=== PATIENT | male | born 1935 | race Caucasian/White ===

== ENCOUNTER 2023-04-28 10:01 | Inpatient (IN) | payer MEDICARE, MEDICAID, SELFPAY ==
[2023-04-28] VITALS (7 sets, daily range): BP systolic 110–122; BP diastolic 62–75; PULSE 70–87; RESP 0–22; TEMP 36.6–37.4; O2SAT 91–94; BMI 25.7
--- NOTE | 2023-04-28 10:24 | XRR_ITS ---
PROCEDURE INFORMATION: Exam: XR Chest Exam date and time: 04/28/2023 10:42 AM Age: 87 years old Clinical indication: Cough and dyspnea; Prior surgery; Surgery date: 6+ months; Surgery type: Pacer; Additional info: Dyspnea/cough TECHNIQUE: Imaging protocol: Radiologic exam of the chest. Views: 1 view. COMPARISON: CR XR chest 1V portable [id number] 01/27/2023 8:22 PM FINDINGS: Tubes, catheters and devices: Left sided cardiac pacemaker lead is in satisfactory position. Lungs: Low lung volumes with no focal opacities. Pleural spaces: No sizable pleural effusion or pneumothorax. Heart/Mediastinum: Stable cardiomediastinal silhouette. Bones/joints: Unremarkable. XR/XR chest 1V portable [id number] IMPRESSION: No acute intrathoracic findings.
[2023-04-28 10:39] LABS: Basophils # 0.1 10^3/uL (0.0-0.1); Basophils % 0.3 %; Hematocrit 43.2 % (37-53); Lymphocytes # 0.8 10^3/uL (0.8-4.8); Mean Corpuscular HGB Conc 32.6 g/dL (30-55); Mean Corpuscular Hemoglobin 30.3 pg (27-33); Mean Corpuscular Volume 92.7 fl (82-101); Mean Platelet Volume 10.5 fL (7.4-10.4); Monocytes # 0.9 10^3/uL (0.2-0.9); Monocytes % 6.1 %; Neutrophils # 13.48 10^3/uL (1.8-7.7); Neutrophils % 87.9 %; Nucleated Red Blood Cells % 0 %; Platelet Count 212 10^3/cmm (157-399); Red Blood Count 4.66 10^6/uL (3.85-5.65); Red Cell Distribution Width 13.9 % (12.1-15.1); White Blood Count 15.33 10^3/uL (3.29-11.43)
--- NOTE | 2023-04-28 10:41 | ED_ITS ---
HPI - Weakness 2 General: Chief complaint: Weakness Stated complaint: Septic Time Seen by Provider: 04/28/23 10:04 Source: patient Mode of arrival: ambulatory History of Present Illness: 87-year-old male presents to the emergen cy room with complaints of generalized weakness and just not feeling well he has had UTIs in the past. He has not had any fever sweats or chills this morning he has been more confused according to his is his main caregiver. Has not had any vomiting or diarrhea. Report from other failures that the patient has had increased frequency of urination. MD Complaint: generalized weakness Onset (ago): hour(s) Duration: constant Location: generalized Associated symptoms: Denies chest pain, chills, confusion, melena, decreased appetite, diaphoresis, dysuria, easy bruising, fever(s), headache(s), myalgias, nausea, rash, short of breath, syncope or vomiting Review of Systems 2 Const: Denies: fever(s), chills or diaphoresis Card: Denies: chest pain or syncope Resp: Denies: dyspnea GI: Denies: abdominal pain, nausea, vomiting or melena : Reports: urinary frequency; Denies: dysuria or urinary urgency Musc: Denies: neck pain or back pain Skin/Breast: Denies: rash Neuro: Denies: headache(s) or confusion Dawson/Lymph: Denies: easy bruising PFSH ED 2 PFSH: Medical History (Updated 04/28/23 @ 15:42 by Ferny Casper DO) Chronic kidney disease Hypothyroidism Depression Hyperlipidemia Urinary retention Alzheimer disease CAD (coronary artery disease) Atrial fibrillation CHF (congestive heart failure) CVA (cerebral vascular accident) BPH with obstruction/lower urinary tract symptoms Gross hematuria Surgical History (Updated 04/28/23 @ 12:29 by Ryenaldo Syed MD) History of permanent cardiac pacemaker placement History of back surgery S/P knee surgery Family History Father , 81 CAD (coronary artery disease) Mother Diabetes Social History Smoking and tobacco/nicotine status: former use of tobacco/nicotine Alcohol intake: never Substance/Drug Use: never Adopted: No Caregiver/support person: No Lives independently: No Household members: spouse Marital status: Current occupational status: retired Physical Exam 2 Const: GENERAL APPEARANCE: cooperative and comfortable O RIENTATION/CONSCIOUSNESS: Yes awake HENMT: COMMON NORMALS: normocephalic, atraumatic and hearing grossly normal bilaterally HEAD & SCALP: normocephalic and atraumatic Resp: COMMON NORMALS: normal respiratory effort, No retractions, No use of accessory muscles and clear to auscultation bilaterally AUSCULTATION: clear to auscultation bilaterally Cardio: COMMON NORMALS: regular rate, regular rhythm and No murmurs present (Cardio) RATE: regular rate RHYTHM: regular rhythm GI: COMMON NORMALS: Soft to palpation and No hepatosplenomegaly present A USCULTATION: Yes normoactive bowel sounds PALPATION: Yes Soft to palpation, No Tenderness to palpation present (GI), No Guarding due to palpation present (GI) and Yes No hepatosplenomegaly present Extremity: COMMON NORMALS: normal to inspection, capillary refill normal, no clubbing, cyanosis or edema, no calf tenderness and no pedal edema Skin: COMMON NORMALS: no rashes or lesions noted GENERAL SKIN EXAM: no rashes or lesions noted Course 2 Vital Signs: Vital signs: Vital Signs Temperature 98.1 F 04/28/23 13:17 Pulse Rate 72 04/28/23 13:25 Respiratory Rate 16 04/28/23 13:25 Blood Pressure 122/62 04/28/23 13:17 Pulse Oximetry 93 04/28/23 13:25 Oxygen Delivery Me thod Room Air 04/28/23 13:28 MDM - Weakness Medical Decision Making Cystitis with early signs of sepsis. Patient had cultures done started on antibiotics fluid bolus given does not require pressure support at this time. Discussed with family. UA shows largely white blood cells. He does have a history of known renal stones in the kidneys but has not passed any renal stones. He is not having significant pain at this time. Minimal white blood cells on the UA. Discussed Dr. Syed will admit orders written Medical Records I reviewed the patient's medical records. Lab Data I reviewed the patient's lab results. 04/28/23 10:13 04/28/23 10:13 Radiology Impressions Chest X-Ray 04/28/23 10:24 IMPRESSION: No acute intrathoracic findings. Laboratory Results WBC 15.33 10^3/uL (3.29-11.43) H 04/28/23 10:13 RBC 4.66 10^6/uL (3.85-5.65) 04/28/23 10:13 Hgb 14.10 g/dL (11.27-16.99) 04/28/23 10:13 Hct 43.2 % (37-53) 04/28/23 10:13 MCV 92.7 fl (82-101) 04/28/23 10:13 MCH 30.3 pg (27-33) 04/28/23 10:13 MCHC 32.6 g/dL (30-55) 04/28/23 10:13 RDW 13.9 % (12.1-15.1) 04/28/23 10:13 Plt Count 212 10^3/cmm (157-399) 04/28/23 10:13 MPV 10.5 fL (7.4-10.4) H 04/28/23 10:13 Neut % (Auto) 87.9 % 04/28/23 10:13 Lymph % (Auto) 5.0 % 04/28/23 10:13 [place] % (Auto) 6.1 % 04/28/23 10:13 Eos % (Auto) 0.0 % 04/28/23 10:13 Baso % (Auto) 0.3 % 04/28/23 10:13 Neut # (Auto) 13.48 10^3/uL (1.8-7.7) H 04/28/23 10:13 Lymph # (Auto) 0.8 10^3/uL (0.8-4.8) 04/28/23 10:13 [place] # (Auto) 0.9 10^3/uL (0.2-0.9) 04/28/23 10:13 Eos # (Auto) 0.0 10^3/uL (0.0-0.8) 04/28/23 10:13 Baso # (Auto) 0.1 10^3/uL (0.0-0.1) 04/28/23 10:13 Nucleated RBC % (auto) 0 % 04/28/23 10:13 Nucleated RBCs # 0.0 /100WBC 04/28/23 10:13 Sodium 137 mmol/L (136-145) 04/28/23 10:13 Potassium 4.3 mmol/L (3.5-5.1) 04/28/23 10:13 Chloride 103 mmol/L (98-107) 04/28/23 10:13 Carbon Dioxide 20 mmol/L (22-29) L 04/28/23 10:13 Anion Gap 18.3 (5-19) 04/28/23 10:13 BUN 17 mg/dL (8-23) 04/28/23 10:13 Creatinine 1.8 mg/dL (0.7-1.2) H 04/28/23 10:13 GFR Calculation Not Reportable 04/28/23 10:13 Glucose 119 mg/dL (65-115) H 04/28/23 10:13 Calculated Osmolality 287 mOsm/kg (285-295) 04/28/23 10:13 Lactic Acid 2.7 mmol/L (0.5-2.2) H 04/28/23 10:13 Calcium 8.7 mg/dL (8.5-10.5) 04/28/23 10:13 Total Bilirubin 2.0 mg/dL (0.15-1.2) H 04/28/23 10:13 AST 11 U/L (0-40) 04/28/23 10:13 ALT 7 U/L (0-41) 04/28/23 10:13 Alkaline Phosphatase 96 U/L (40-130) 04/28/23 10:13 Total Protein 7.3 g/dL (6.6-8.7) 04/28/23 10:13 Albumin 3.5 g/dL (3.5-5.2) 04/28/23 10:13 Globulin 3.8 g/dL (1.3-4.6) 04/28/23 10:13 Urine Color Yellow (Yellow) 04/28/23 11:06 Urine Appearance Cloudy (CLEAR) A 04/28/23 11:06 Urine pH 5 (5-7) 04/28/23 11:06 Ur Specific [place] 1.015 (1.005-1.030) 04/28/23 11:06 Urine Protein 1+ (Negative) H 04/28/23 11:06 Urine Glucose (UA) Norm (Normal) 04/28/23 11:06 Urine Ketones 1+ (Negative) H 04/28/23 11:06 Urine Blood 2+ (Negative) H 04/28/23 11:06 Urine Nitrate Positive (Negative) H 04/28/23 11:06 Urine Bilirubin Neg (Negative) 04/28/23 11:06 Urine Urobilinogen Norm mg/dL (Negative) 04/28/23 11:06 Ur Leukocyte Esterase 2+ (Negative) H 04/28/23 11:06 Urine RBC 10-15 /hpf (0-2) H 04/28/23 11:06 Urine WBC >100 /hpf (0-5) H 04/28/23 11:06 Ur Squamous Epith Cells Rare /hpf (0-5) 04/28/23 11:06 Amorphous Sediment Not Reportable 04/28/23 11:06 Urine Bacteria 2+ /hpf (NONE) H 04/28/23 11:06 Urine Mucus Trace /hpf 04/28/23 11:06 All radiology interpretation(s) finalized by discharge Discharge Plan Discharge Patient Disposition: Admitted As Inpatient Admit Provider: Reynaldo Syed Clinical Impression: UTI (urinary tract infection), Alzheimer disease, Acidosis, lactic Condition: Stable Coding Level of Care Code ED 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
[2023-04-28 10:53] LABS: Lactic Sepsis W/Reflex 2.7 mmol/L (0.5-2.2)
[2023-04-28 10:55] LABS: Alanine Aminotransferase 7 U/L (0-41); Albumin Level 3.5 g/dL (3.5-5.2); Alkaline Phosphatase 96 U/L (40-130); Anion Gap 18.3 (5-19); Aspartate Amino Transferase 11 U/L (0-40); Blood Urea Nitrogen 17 mg/dL (8-23); Calcium 8.7 mg/dL (8.5-10.5); Carbon Dioxide 20 mmol/L (22-29); Chloride 103 mmol/L (98-107); Globulin 3.8 g/dL (1.3-4.6); Glucose 119 mg/dL (65-115); Osmolality Calculated 287 mOsm/kg (285-295); Potassium 4.3 mmol/L (3.5-5.1); Sodium 137 mmol/L (136-145); Total Protein 7.3 g/dL (6.6-8.7)
[2023-04-28] MEDS: cefTRIAXone 1,000 MG in sodium chloride 0.9% (plus) 50 ML 100 MG IV (11:21)
[2023-04-28 11:31] LABS: Add Urine Microscopic? YES; Bilirubin Urine Neg (Negative); Blood Urine 2+ (Negative); Glucose Urine UA Norm (Normal); Ketones Urine 1+ (Negative); Leukocyte Esterase Urine 2+ (Negative); Nitrate Urine Positive (Negative); Protein Urine 1+ (Negative); Specific Gravity, Urine 1.015 (1.005-1.030); Urine Appearance Cloudy (CLEAR); Urine Color Yellow (Yellow); Urobilinogen Urine Norm (Negative); pH Urine 5 (5-7)
[2023-04-28 11:42] LABS: Add Urine Culture? Yes; Bacteria Urine 2+ /hpf; Mucus Urine TRACE /hpf; Squamous Epithelial Cell Urine RARE /hpf (0-5); WBC Urine >100 /hpf (0-5)
[2023-04-28 12:16] LABS: Reflex Lactate Order REFLEX LACTIC ORDERD
--- NOTE | 2023-04-28 12:26 | P.HP_ITS ---
Providers/Chief Complaint 2 Admitting Physician: Reynaldo Syed MD Primary Care Provider: Chente Yanez DO Chief Complaint: Septic History of Present Illness Bronson Silva is a 87 year old male presenting to the emergency department with 2 days of weakness, fatigue, increased confusion. Family reports history of recurrent urinary tract infections. He has not had any documented fever. He has been eating and drinking less. He apparently has been told to catheterize as needed, but may not of been doing this. This was secondary to urinary retention. In the emergency department he got some IV fluids, a dose of Rocephin. During his course his urine was obtained by straight cath, following an episode of incontinence. Currently by bladder scan he only has 30 cc in his bladder. Review of Systems 2 General: Reports: 10 or more systems reviewed and unremarkable except in HPI and below Card: Denies: chest pain Resp: Reports: dyspnea (Reports this is chronic and unchanged) GI: Denies: abdominal pain, nausea, vomiting, hematochezia or melena Medications/Allergies Home Medications Medication Instructions Recorded Confirmed Last Taken Type cholecalciferol (vitamin D3) 50 2,000 unit PO DAILY 04/05/19 03/18/23 03/18/22 History mcg (2,000 unit) tablet clopidogrel 75 mg tablet (Plavix) 75 mg PO DAILY 04/05/19 03/18/23 03/18/22 History finasteride 5 mg tablet 5 mg PO DAILY 04/05/19 03/18/23 03/17/22 History albuterol sulfate 90 mcg/actuation 2 inh inhalation Q4H PRN shortness 09/26/19 03/18/23 1 Month Ago Rx aerosol inhaler of breath or wheezing #18 grams ~12/18/19 furosemide 20 mg tablet 20 mg PO DAILY 05/11/20 03/18/23 03/18/22 History tamsulosin 0.4 mg capsule 0.4 mg PO DAILY 05/11/20 03/18/23 03/18/22 History citalopram 40 mg tablet 20 mg PO DAILY 11/14/21 03/18/23 03/18/22 History diphenhydramine 25 1 tab PO Q6H PRN Sleep 11/14/21 03/18/23 11/13/21 History mg-acetaminophen 500 mg tablet (Tylenol PM Extra Strength) levothyroxine 75 mcg tablet 75 mcg PO DAILY 11/14/21 03/18/23 03/18/22 History atorvastatin 40 mg tablet 40 mg PO DAILY 03/18/22 03/18/23 03/17/22 History galantamine 4 mg tablet 4 mg PO BID #60 tabs 02/17/23 03/18/23 Unknown Rx Allergies Allergy/AdvReac Type Severity Reaction Status Date / Time [id number] Reductase Allergy NA Verified 03/18/23 13:44 Inhibitor [Uzslcda-Fph-Srn Reductase Inhibitor] PFSH Acute 2 PFSH: Medical History (Updated 04/28/23 @ 12:34 by Reynaldo Syed MD) Chronic kidney disease Hypothyroidism Depression Hyperlipidemia Urinary retention Alzheimer disease CAD (coronary artery disease) Atrial fibrillation CHF (congestive heart failure) CVA (cerebral vascular accident) BPH with obstruction/lower urinary tract symptoms Gross hematuria Surgical History (Updated 04/28/23 @ 12:29 by Reynaldo Syed MD) History of permanent cardiac pacemaker placement History of back surgery S/P knee surgery Family History Father , 81 CAD (coronary artery disease) Mother Diabetes Social History Smoking and tobacco/nicotine status: former use of tobacco/nicotine Alcohol intake: never Substance/Drug Use: never Adopted: No Caregiver/support person: No Lives independently: No Household members: spouse Marital status: Current occupational status: retired Vitals/I&O/Wt Last Vital Signs Temp 97.9 F 04/28/23 10:05 Pulse 70 04/28/23 11:00 Resp 16 04/28/23 11:00 BP 116/71 04/28/23 11:00 Pulse Ox 94 04/28/23 11:00 O2 Del Method Room Air 04/28/23 10:05 Weight last 48 hrs Weight 83.915 kg Physical Exam 2 Narrative: General exam demonstrates a white male, no distress HEENT: Atraumatic normocephalic. Oropharynx clear Neck is supple no lymphadenopathy or megaly Cardiovascular regular rate and rhythm, no murmur Lungs diminished breath sounds at the bases. Occasional wheeze. No crackles. Abdomen is soft nontender with positive bowel sounds. No obvious organomegaly exam is deferred Extremities no sinus clubbing edema, cap refill brisk Skin no rash Neuro no obvious focal deficits Data 04/28/23 10:13 04/28/23 10:13 Other Labs: LFTs are normal with the exception of bilirubin of 2.0. Lactic acid 2.7 Calcium and albumin normal Urinalysis demonstrates 10-15 reds, Greater than 100 whites, 2+ bacteria and positive nitrates Chest x-ray by my read pacemaker device, no infiltrate Previous echo in January EF 50% EKG January which I reviewed paced rhythm, ventricular device Blood and urine cultures were obtained Micro: Microbiology 04/28/23 11:10 Blood Culture - Preliminary Blood SPECIMEN COLLECTED 04/28/23 11:07 Blood Culture - Preliminary Blood SPECIMEN COLLECTED A&P Assessment and plan (1) UTI (urinary tract infection): Patient with significant UTI. This appears complicated as he has acute encephalopathy superimposed on it. His white blood cell count is elevated, as is his lactate. He has received a fluid bolus. Discontinue fluids at this time as blood pressure is adequate, and he has a past history of CHF Urine and blood cultures have been obtained Rocephin 1 g IV every 24 hours Bladder scan as needed. He has history of urinary retention Continue Flomax, finasteride (2) Acute encephalopathy: Patient with acute encephalopathy, superimposed on underlying dementia Monitor closely for improvement Secondary to UTI, consistent with acute infectious encephalopathy (3) Weakness: Patient with significant weakness. There is concern he may need [facility] facility placement. Therapy consultations (4) CHF (congestive heart failure): Patient with history of CHF. He appears compensated currently. He did receive some significant fluid in the emergency department. Discontinue further fluid at this time Consider reinitiation of Lasix tomorrow depending upon clinical course Qualifiers: Heart failure chronicity: chronic Heart failure type: unspecified Qualified Code(s): I50.9 - Heart failure, unspecified (5) Chronic kidney disease: Patient with significant chronic kidney disease Avoid renal toxic medication BMP daily Plan Other medical problems as outlined this past medical history Allow natural . Discussed with patient and son Heparin for DVT prophylaxis Attestations 2 Medical Necessity Statement*: Will require greater than 2 midnight stay for evaluation and treatment of complicated UTI with acute encephalopathy Diagnoses UTI (urinary tract infection) N39.0 Acute encephalopathy G93.40 Weakness R53.1 Chronic congestive heart failure, unspecified heart failure type I50.9 Heart failure chronicity: chronic Heart failure type: unspecified Chronic kidney disease N18.9 Time Spent (min) 53
--- NOTE | 2023-04-28 12:59 | PC.PHAR ---
pt states he had a home health nurse that was setting his meds up-called pts talya she states she is unsure what the pt takes and to call the pts son cesario states hes been helping set up the meds-pts son cesario states its been a few months since the nurse had been there to set his meds up-cesario pts son states he is going to call his brother to see since his brother set up the pts meds last week-cesario ordaz will call back to see if they have med list-
[2023-04-28] MEDS: heparin 5,000 unit/mL INJ 1 mL 5000 UNIT SUBCUT ×2 (13:59→20:32)
[2023-04-29] VITALS (7 sets, daily range): BP systolic 102–118; BP diastolic 62–72; PULSE 69–74; RESP 17–30; TEMP 36.4–36.9; O2SAT 92–96
[2023-04-29] MEDS: heparin 5,000 unit/mL INJ 1 mL 5000 UNIT SUBCUT (04:21)
[2023-04-29 05:22] LABS: Basophils % 0.3 %; Eosinophils % 0.1 %; Hematocrit 42.7 % (37-53); Lymphocytes % 6.7 %; Mean Corpuscular HGB Conc 32.1 g/dL (30-55); Mean Corpuscular Hemoglobin 30.4 pg (27-33); Mean Corpuscular Volume 94.7 fl (82-101); Mean Platelet Volume 10.2 fL (7.4-10.4); Monocytes % 6.6 %; Neutrophils % 85.6 %; Nucleated Red Blood Cells % 0 %; Platelet Count 176 10^3/cmm (157-399); Red Blood Count 4.51 10^6/uL (3.85-5.65); Red Cell Distribution Width 14.1 % (12.1-15.1); White Blood Count 14.83 10^3/uL (3.29-11.43)
[2023-04-29 05:44] LABS: Alanine Aminotransferase 8 U/L (0-41); Albumin Level 3.3 g/dL (3.5-5.2); Alkaline Phosphatase 97 U/L (40-130); Anion Gap 15.7 (5-19); Aspartate Amino Transferase 14 U/L (0-40); Blood Urea Nitrogen 25 mg/dL (8-23); Calcium 8.6 mg/dL (8.5-10.5); Carbon Dioxide 22 mmol/L (22-29); Chloride 103 mmol/L (98-107); Creatinine Clr Calc Pharmacy 31.1292; Globulin 3.7 g/dL (1.3-4.6); Glucose 121 mg/dL (65-115); Magnesium 2.1 mg/dL (1.7-2.3); Osmolality Calculated 288 mOsm/kg (285-295); Potassium 4.7 mmol/L (3.5-5.1); Sodium 136 mmol/L (136-145); Total Bilirubin 1.7 mg/dL (0.15-1.2)
[2023-04-29] MEDS: atorvastatin 40 mg Tablet PO (08:39)
[2023-04-29] MEDS: citalopram 20 mg Tablet PO (08:39)
[2023-04-29] MEDS: clopidogrel 75 mg Tablet PO (08:39)
[2023-04-29] MEDS: levothyroxine 75 mcg Tablet PO (08:39)
[2023-04-29] MEDS: tamsulosin 0.4 mg Capsule 0.400000000000000022 MG PO (08:39)
[2023-04-29] MEDS: finasteride 5 mg Tablet PO (08:39)
--- NOTE | 2023-04-29 10:16 | P.PN_ITS ---
Subjective 2 Subjective: Bronson is more alert and interactive this morning. He denies any specific complaints. He did have a loose stool this morning. I had a long discussion with his family. Family reports his mental status is not yet to baseline Medications: Reviewed: Yes Vitals/I&O/Wt Last Vital Signs Temp 97.8 F 04/29/23 07:41 Pulse 73 04/29/23 07:41 Resp 18 04/29/23 07:41 BP 106/62 04/29/23 07:41 Pulse Ox 96 04/29/23 07:41 O2 Del Method Room Air 04/29/23 07:41 04/28/23 04/29/23 04/29/23 22:59 06:59 14:59 Intake Total 240 / 2807.45 240 / 240 Balance 240 / 2807.45 240 / 240 Weight last 48 hrs Weight 95.799 kg Weight 83.915 kg Weight 83.915 kg Physical Exam 2 Narrative: General exam no distress, conversant, still somewhat confused Neck is supple no lymphadenopathy or megaly Cardiovascular regular rate and rhythm, no murmur Lungs diminished breath sounds at the bases. Occasional wheeze. No crackles. Abdomen is soft nontender with positive bowel sounds. No obvious organomegaly Extremities no sinus clubbing edema, cap refill brisk Neuro no obvious focal deficits Data 04/29/23 04:58 04/29/23 04:58 Micro: Microbiology 04/28/23 11:10 Blood Culture - Preliminary Blood SPECIMEN COLLECTED 04/28/23 11:07 Blood Culture - Preliminary Blood SPECIMEN COLLECTED A&P Assessment and plan (1) UTI (urinary tract infection): Patient with significant UTI. This appears complicated as he has acute encephalopathy superimposed on it. White blood cell count has decreased slightly He has received a fluid bolus. Discontinue fluids at this time as blood pressure is adequate, and he has a past history of CHF Urine and blood cultures have been obtained Continue Rocephin 1 g IV every 24 hours Bladder scan as needed. He has history of urinary retention. If significant urinary retention is found consider intermittent catheterization as he was instructed to do previously at home Continue Flomax, finasteride (2) Acute encephalopathy: Patient with acute encephalopathy, superimposed on underlying dementia Not yet back to baseline Secondary to UTI, consistent with acute infectious encephalopathy Has overlying dementia (3) Weakness: Patient with significant weakness. There is concern he may need longterm facility placement. Therapy consultations appreciated (4) CHF (congestive heart failure): Patient with history of CHF. He appears compensated currently. He did receive some significant fluid in the emergency department. Discontinue further IV fluid at this time Reinitiate Lasix tomorrow Qualifiers: Heart failure chronicity: chronic Heart failure type: unspecified Qualified Code(s): I50.9 - Heart failure, unspecified (5) Chronic kidney disease: Patient with significant chronic kidney disease Avoid renal toxic medication BMP daily Plan History of atrial fibrillation. Resume his Eliquis. Discontinue heparin subcu Other medical problems as outlined this past medical history Allow natural . Discussed with patient and son Dusty will suffice for DVT prophylaxis Planning on likely need for longterm facility placement. Attestations 2 Medical Necessity Statement*: Needs continued hospital stay for further treatment of complicated UTI, with Rocephin, awaiting culture as patient's acute encephalopathy has not yet resolved Diagnoses UTI (urinary tract infection) N39.0 Acute encephalopathy G93.40 Weakness R53.1 Chronic congestive heart failure, unspecified heart failure type I50.9 Heart failure chronicity: chronic Heart failure type: unspecified Chronic kidney disease N18.9 Time Spent (min) 22
[2023-04-29] MEDS: cefTRIAXone 1,000 MG in sodium chloride 0.9% (plus) 50 ML 100 MG IV (10:47)
[2023-04-29] MEDS: apixaban 5 mg Tablet PO (17:26)
[2023-04-30 04:00] VITALS: BP 112/70; PULSE 74; RESP 12; TEMP 36.4; O2SAT 93
[2023-04-30 05:17] LABS: Basophils % 0.3 %; Eosinophils # 0.1 10^3/uL (0.0-0.8); Hematocrit 37.8 % (37-53); Lymphocytes # 0.8 10^3/uL (0.8-4.8); Lymphocytes % 9.1 %; Mean Corpuscular HGB Conc 31.7 g/dL (30-55); Mean Corpuscular Hemoglobin 30.2 pg (27-33); Mean Corpuscular Volume 95.2 fl (82-101); Mean Platelet Volume 10.7 fL (7.4-10.4); Monocytes # 0.9 10^3/uL (0.2-0.9); Monocytes % 9.7 %; Neutrophils # 7.15 10^3/uL (1.8-7.7); Neutrophils % 79.5 %; Nucleated Red Blood Cells % 0 %; Platelet Count 155 10^3/cmm (157-399); Red Blood Count 3.97 10^6/uL (3.85-5.65); Red Cell Distribution Width 13.9 % (12.1-15.1)
[2023-04-30 05:43] LABS: Anion Gap 16.1 (5-19); Blood Urea Nitrogen 29 mg/dL (8-23); Calcium 8.4 mg/dL (8.5-10.5); Carbon Dioxide 21 mmol/L (22-29); Chloride 101 mmol/L (98-107); Creatinine Clr Calc Pharmacy 34.7915; Glucose 99 mg/dL (65-115); Osmolality Calculated 284 mOsm/kg (285-295); Potassium 4.1 mmol/L (3.5-5.1); Sodium 134 mmol/L (136-145)
[2023-04-30 07:27] VITALS: BP 113/72; PULSE 69; RESP 16; TEMP 36.7; O2SAT 95
[2023-04-30] MEDS: finasteride 5 mg Tablet PO (08:20)
[2023-04-30] MEDS: citalopram 20 mg Tablet PO (08:20)
[2023-04-30] MEDS: clopidogrel 75 mg Tablet PO (08:20)
[2023-04-30] MEDS: atorvastatin 40 mg Tablet PO (08:20)
[2023-04-30] MEDS: tamsulosin 0.4 mg Capsule 0.400000000000000022 MG PO (08:20)
[2023-04-30] MEDS: apixaban 5 mg Tablet PO ×2 (08:20→17:22)
[2023-04-30] MEDS: FUROsemide 20 mg Tablet PO (08:20)
[2023-04-30] MEDS: levothyroxine 75 mcg Tablet PO (08:20)
--- NOTE | 2023-04-30 10:52 | P.PN_ITS ---
Subjective 2 Subjective: Bronson reports he is doing okay. He is oriented to the year. He denies any pain. Having some loose stool Medications: Reviewed: Yes Vitals/I&O/Wt Last Vital Signs Temp 98.0 F 04/30/23 07:27 Pulse 69 04/30/23 07:27 Resp 16 04/30/23 07:27 BP 113/72 04/30/23 07:27 Pulse Ox 95 04/30/23 07:27 O2 Del Method Room Air 04/30/23 08:55 04/29/23 04/30/23 04/30/23 22:59 06:59 14:59 Intake Total 600 / 1130 480 / 1610 Output Total 350 / 350 Balance 600 / 1130 130 / 1260 Weight last 48 hrs Weight 95.799 kg Weight 83.915 kg Physical Exam 2 Narrative: General exam no distress, conversant, still somewhat confused Neck is supple no lymphadenopathy or megaly Cardiovascular regular rate and rhythm, no murmur Lungs diminished breath sounds at the bases. Occasional wheeze. No crackles. Abdomen is soft nontender with positive bowel sounds. No obvious organomegaly Extremities no sinus clubbing edema, cap refill brisk Data 04/30/23 04:56 04/30/23 04:56 Micro: Microbiology 04/28/23 11:06 Urine Culture - Final Urine,Clean Catch Escherichia coli 04/28/23 11:10 Blood Culture - Preliminary Blood NEGATIVE TO DATE 04/28/23 11:07 Blood Culture - Preliminary Blood NEGATIVE TO DATE A&P Assessment and plan (1) UTI (urinary tract infection): Patient with significant UTI. This appears complicated as he has acute encephalopathy superimposed on it. White blood cell count has decreased slightly He has received a fluid bolus. Discontinue fluids at this time as blood pressure is adequate, and he has a past history of CHF Urine and blood cultures have been obtained. Urine culture growing gram- negative rods. Continue Rocephin 1 g IV every 24 hours Bladder scan as needed. He has history of urinary retention. If significant urinary retention is found consider intermittent catheterization as he was instructed to do previously at home Continue Flomax, finasteride (2) Acute encephalopathy: Patient with acute encephalopathy, superimposed on underlying dementia Appears a little bit better today. Secondary to UTI, consistent with acute infectious encephalopathy Has overlying dementia Still significantly weak. (3) Weakness: Patient with significant weakness. There is concern he may need senior living facility placement. Therapy consultations appreciated. Continue to work with therapy. (4) CHF (congestive heart failure): Patient with history of CHF. He appears compensated currently. He did receive some significant fluid in the emergency department. P.o. Lasix has been reinitiated Qualifiers: Heart failure chronicity: chronic Heart failure type: unspecified Qualified Code(s): I50.9 - Heart failure, unspecified (5) Chronic kidney disease: Patient with significant chronic kidney disease Avoid renal toxic medication BMP daily Renal function improved Plan History of atrial fibrillation. Continue Eliquis Loose stool. Check C. difficile toxin Other medical problems as outlined this past medical history Allow natural . Discussed with patient and son Dusty will suffice for DVT prophylaxis Probable discharge tomorrow if continues to improve Attestations 2 Medical Necessity Statement*: Needs continued hospital stay for IV antibiotics related to complicated UTI Diagnoses UTI (urinary tract infection) N39.0 Acute encephalopathy G93.40 Weakness R53.1 Chronic congestive heart failure, unspecified heart failure type I50.9 Heart failure chronicity: chronic Heart failure type: unspecified Chronic kidney disease N18.9 Time Spent (min) 15
[2023-04-30] MEDS: cefTRIAXone 1,000 MG in sodium chloride 0.9% (plus) 50 ML 100 MG IV (11:14)
[2023-04-30 11:18] VITALS: BP 116/71; PULSE 75; RESP 16; TEMP 36.3; O2SAT 94
[2023-04-30 12:27] LABS: C.Diff PCR (Lab) NEGATIVE (Negative)
[2023-04-30 16:00] VITALS: BP 110/74; PULSE 70; RESP 17; O2SAT 94
[2023-04-30 20:00] VITALS: BP 112/71; PULSE 98; RESP 18; TEMP 36.9; O2SAT 96
[2023-05-01] VITALS: BP 104/65; PULSE 69; RESP 20; TEMP 36.5; O2SAT 94
[2023-05-01 04:00] VITALS: BP 113/66; PULSE 73; RESP 20; TEMP 36.4; O2SAT 92
[2023-05-01 05:05] LABS: Basophils % 0.6 %; Eosinophils # 0.2 10^3/uL (0.0-0.8); Eosinophils % 3.6 %; Hematocrit 38.3 % (37-53); Lymphocytes % 15.1 %; Mean Corpuscular HGB Conc 32.1 g/dL (30-55); Mean Corpuscular Hemoglobin 29.8 pg (27-33); Mean Corpuscular Volume 92.7 fl (82-101); Mean Platelet Volume 10.4 fL (7.4-10.4); Monocytes # 0.9 10^3/uL (0.2-0.9); Monocytes % 13.6 %; Neutrophils # 4.51 10^3/uL (1.8-7.7); Neutrophils % 66.7 %; Nucleated Red Blood Cells % 0 %; Platelet Count 169 10^3/cmm (157-399); Red Blood Count 4.13 10^6/uL (3.85-5.65); Red Cell Distribution Width 13.6 % (12.1-15.1); White Blood Count 6.76 10^3/uL (3.29-11.43)
[2023-05-01 05:24] LABS: Anion Gap 15.8 (5-19); Blood Urea Nitrogen 29 mg/dL (8-23); Calcium 8.4 mg/dL (8.5-10.5); Carbon Dioxide 21 mmol/L (22-29); Chloride 101 mmol/L (98-107); Creatinine Clr Calc Pharmacy 42.1365; Glucose 88 mg/dL (65-115); Osmolality Calculated 283 mOsm/kg (285-295); Potassium 3.8 mmol/L (3.5-5.1); Sodium 134 mmol/L (136-145)
[2023-05-01 08:03] VITALS: BP 115/76; PULSE 69; RESP 17; TEMP 36.6; O2SAT 96
[2023-05-01] MEDS: clopidogrel 75 mg Tablet PO (09:06)
[2023-05-01] MEDS: levothyroxine 75 mcg Tablet PO (09:06)
[2023-05-01] MEDS: citalopram 20 mg Tablet PO (09:06)
[2023-05-01] MEDS: finasteride 5 mg Tablet PO (09:06)
[2023-05-01] MEDS: atorvastatin 40 mg Tablet PO (09:06)
[2023-05-01] MEDS: tamsulosin 0.4 mg Capsule 0.400000000000000022 MG PO (09:06)
[2023-05-01] MEDS: FUROsemide 20 mg Tablet PO (09:06)
[2023-05-01] MEDS: apixaban 5 mg Tablet PO (09:06)
--- NOTE | 2023-05-01 09:38 | PM.DCS ---
Discharge Providers Date of Admission: 04/28/23 12:36 Date of Discharge: May 01, 2023 Attending Provider at Admission: Reynaldo Syed MD Attending Provider at Discharge: Reynaldo Syed MD Primary Care Provider: Chente Yanez DO Diagnoses at Discharge Discharge Diagnosis (1) UTI (urinary tract infection): Status: Acute (2) Acute encephalopathy: Status: Acute (3) Weakness: Status: Acute (4) CHF (congestive heart failure): Status: Acute Qualifiers: Heart failure chronicity: chronic Heart failure type: unspecified Qualified Code(s): I50.9 - Heart failure, unspecified (5) Chronic kidney disease: Status: Chronic Reason for Visit Reason for Visit: Septic Hospital Course Hospital Course Bronson is an 87-year-old white male who presented to the hospital with encephalopathy, increased confusion and weakness, and evidence of UTI. This appeared to be a complicated UTI and he was placed on IV antibiotics in the hospital. Mental status was closely followed. The second day of hospital stay encephalopathy was still present. Rocephin was continued. Urine eventually was starting to grow gram-negative rods. By the next day of hospital stay encephalopathy appeared to be mostly resolved. IV antibiotics were continued pending identification of the organism. Secondary to significant weakness skilled therapy was recommended. He was able to transition to the nursing facility, for skilled therapy on May 01 and he was medically stable at that time. He will finish up a short course of cefdinir. He did have diarrhea while in the hospital, and C. difficile was checked and negative. Him and his family were able to ask questions and agreed with the plan. He does have history of urinary retention, so bladder scan and as needed straight cath may be needed. Physical Exam Narrative: General exam no distress Cardiovascular regular rate and rhythm Lungs clear Abdomen soft Extremities no sinus clubbing edema Discharge Data Studies Completed and Pending Completed Studies During Hospitalization Category Date Time Status XR chest 1V portable [id number] Stat Exams 04/28/23 10:24 Completed Pending at discharge Category Date Time Status Blood Culture Stat Lab 04/28/23 11:10 Results SARS Covid-2 Antigen Routine Lab 05/01/23 08:28 Uncollected Radiology Impressions Chest X-Ray 04/28/23 10:24 IMPRESSION: No acute intrathoracic findings. Laboratory Results WBC 6.76 10^3/uL (3.29-11.43) 05/01/23 04:50 RBC 4.13 10^6/uL (3.85-5.65) 05/01/23 04:50 Hgb 12.30 g/dL (11.27-16.99) 05/01/23 04:50 Hct 38.3 % (37-53) 05/01/23 04:50 MCV 92.7 fl (82-101) 05/01/23 04:50 MCH 29.8 pg (27-33) 05/01/23 04:50 MCHC 32.1 g/dL (30-55) 05/01/23 04:50 RDW 13.6 % (12.1-15.1) 05/01/23 04:50 Plt Count 169 10^3/cmm (157-399) 05/01/23 04:50 MPV 10.4 fL (7.4-10.4) 05/01/23 04:50 Neut % (Auto) 66.7 % 05/01/23 04:50 Lymph % (Auto) 15.1 % 05/01/23 04:50 [place] % (Auto) 13.6 % 05/01/23 04:50 Eos % (Auto) 3.6 % 05/01/23 04:50 Baso % (Auto) 0.6 % 05/01/23 04:50 Neut # (Auto) 4.51 10^3/uL (1.8-7.7) 05/01/23 04:50 Lymph # (Auto) 1.0 10^3/uL (0.8-4.8) 05/01/23 04:50 [place] # (Auto) 0.9 10^3/uL (0.2-0.9) 05/01/23 04:50 Eos # (Auto) 0.2 10^3/uL (0.0-0.8) 05/01/23 04:50 Baso # (Auto) 0.0 10^3/uL (0.0-0.1) 05/01/23 04:50 Nucleated RBC % (auto) 0 % 05/01/23 04:50 Nucleated RBCs # 0.0 /100WBC 05/01/23 04:50 Sodium 134 mmol/L (136-145) L 05/01/23 04:50 Potassium 3.8 mmol/L (3.5-5.1) 05/01/23 04:50 Chloride 101 mmol/L (98-107) 05/01/23 04:50 Carbon Dioxide 21 mmol/L (22-29) L 05/01/23 04:50 Anion Gap 15.8 (5-19) 05/01/23 04:50 BUN 29 mg/dL (8-23) H 05/01/23 04:50 Creatinine 1.4 mg/dL (0.7-1.2) H 05/01/23 04:50 GFR Calculation Not Reportable 05/01/23 04:50 Glucose 88 mg/dL (65-115) 05/01/23 04:50 Calculated Osmolality 283 mOsm/kg (285-295) L 05/01/23 04:50 Lactic Acid 2.7 mmol/L (0.5-2.2) H 04/28/23 10:13 Lactic Acid (Sepsis) 2.0 mmol/L (0.5-2.2) 04/28/23 13:12 Calcium 8.4 mg/dL (8.5-10.5) L 05/01/23 04:50 Magnesium 2.1 mg/dL (1.7-2.3) 04/29/23 04:58 Total Bilirubin 1.7 mg/dL (0.15-1.2) H 04/29/23 04:58 AST 14 U/L (0-40) 04/29/23 04:58 ALT 8 U/L (0-41) 04/29/23 04:58 Alkaline Phosphatase 97 U/L (40-130) 04/29/23 04:58 Total Protein 7.0 g/dL (6.6-8.7) 04/29/23 04:58 Albumin 3.3 g/dL (3.5-5.2) L 04/29/23 04:58 Globulin 3.7 g/dL (1.3-4.6) 04/29/23 04:58 Urine Color Yellow (Yellow) 04/28/23 11:06 Urine Appearance Cloudy (CLEAR) A 04/28/23 11:06 Urine pH 5 (5-7) 04/28/23 11:06 Ur Specific [place] 1.015 (1.005-1.030) 04/28/23 11:06 Urine Protein 1+ (Negative) H 04/28/23 11:06 Urine Glucose (UA) Norm (Normal) 04/28/23 11:06 Urine Ketones 1+ (Negative) H 04/28/23 11:06 Urine Blood 2+ (Negative) H 04/28/23 11:06 Urine Nitrate Positive (Negative) H 04/28/23 11:06 Urine Bilirubin Neg (Negative) 04/28/23 11:06 Urine Urobilinogen Norm mg/dL (Negative) 04/28/23 11:06 Ur Leukocyte Esterase 2+ (Negative) H 04/28/23 11:06 Urine RBC 10-15 /hpf (0-2) H 04/28/23 11:06 Urine WBC >100 /hpf (0-5) H 04/28/23 11:06 Ur Squamous Epith Cells Rare /hpf (0-5) 04/28/23 11:06 Amorphous Sediment Not Reportable 04/28/23 11:06 Urine Bacteria 2+ /hpf (NONE) H 04/28/23 11:06 Urine Mucus Trace /hpf 04/28/23 11:06 C. difficile (PCR) Negative (Negative) 04/30/23 11:20 Vitals Last Vital Signs Temp 97.8 F 05/01/23 08:03 Pulse 69 05/01/23 08:03 Resp 17 05/01/23 08:03 BP 115/76 05/01/23 08:03 Pulse Ox 96 05/01/23 08:03 O2 Del Method Room Air 05/01/23 09:15 Discharge Plan Discharge Patient Disposition: Xfer SNF Condition: Stable Prescriptions: New cefdinir 300 mg capsule 300 mg PO BID 7 Days Qty: 14 0RF Continued cholecalciferol (vitamin D3) [Vitamin D3] 2,000 unit tablet 2,000 unit PO DAILY finasteride 5 mg tablet 5 mg PO DAILY clopidogrel [Plavix] 75 mg tablet 75 mg PO DAILY furosemide 20 mg tablet 20 mg PO DAILY galantamine 4 mg tablet 4 mg PO BID Qty: 60 3RF Rx Instructions: administer with AM and PM meals citalopram 40 mg Tablet 20 mg PO DAILY levothyroxine 75 mcg Tablet 75 mcg PO DAILY atorvastatin 40 mg Tablet 40 mg PO DAILY silodosin 4 mg capsule 4 mg PO BEDTIME apixaban 5 mg Tablet 5 mg PO BID Discontinued spironolactone 12.5 mg PO DAILY Discharge Orders: Discharge Order (Routine); Ordered 05/01/23 Ordered By: Reynaldo Syed Referrals: Chente Yanez DO [Primary Care Provider] - 4-7 days Discharge Diet: Cardiac Discharge Activity: Increase activity as tolerated Activity Restrictions/Additional Instructions: Take all medicine as prescribed Return for any concerns Bladder scan as needed. Straight cath every 6 hours as needed if greater than 300 cc Discharge Attestations Time Spent in Discharge Care*: greater than 30 min Quality Metrics Clinical Quality Measures [ No reported AMI, CVA or VTE this stay] Coding Level of Care Code 21301 Total time (in minutes) for Discharge: 50 Diagnoses UTI (urinary tract infection) N39.0 Acute encephalopathy G93.40 Weakness R53.1 Chronic congestive heart failure, unspecified heart failure type I50.9 Heart failure chronicity: chronic Heart failure type: unspecified Chronic kidney disease N18.9
--- NOTE | 2023-05-01 09:54 | PC.CHAP ---
Pastoral Care Encounter/Spiritual Assessment Type of Contact [] Declined mud analysis supervisor visit [] Patient/Family/Request visit [] Outpatient visit [] Follow-up visit [] Physician referral [] Code/Alert [x] Routine visit [] Staff referral [] Actively dying [] Patient sleeping [] Family support [] [] Out of room [] Palliative care [] [] Receiving care in room [] Pre-surgical visit [] Trauma [] Long length of stay [] ICU visit [] Other: Relational/Emotional Strength [x] Patient feels connected with others/family/visitors/staff [] Distress [] Loneliness/isolation [] Abandonment Spirituality of Patient [x] Person of Rachel [] Attends Religion of their Rachel [x] Believes in Prayer [] Reads Bible or Buddhism materials [] There are Spiritual issues to be addressed Manager [employer] Development Interventions [x] Prayer [x] Active listening [] Non-anxious presence [x] Spiritual/emotional support [] Crisis/trauma care [] Spiritual counseling [] Bereavement support [] Provided bereavement packet [] Provided Bible/devotional materials [] Provided toy/stuffed animal, coloring book to patient or family member [] Provided Communion [] Anointing/[place] [] Salvation [x] Completed spiritual assessment [] Other: Impact on Illness or Injury [] Angry [] Fearful [] Anxious [] Often cries [] Exhaustion [] Unable to work [] Unable to attend restoration [] Unable to walk/stand [] Unable to read [] Unable to drive [] Unable to eat/drink [] Unable to sleep [] Unable to be with family [] Patient intubated [] Other: Summary Time spent with patient 5 min
[2023-05-01 10:32] LABS: SARS Covid-2 Antigen negative (Negative)
[2023-05-01] MEDS: cefTRIAXone 1,000 MG in sodium chloride 0.9% (plus) 50 ML 100 MG IV (10:38)
--- NOTE | 2023-05-01 12:31 | PC.NURSE ---
Report called to Josefina at [facility]. IVs removed. Family notified of discharge awaiting transport.
[2023-05-01 13:03] VITALS: BP 115/76; PULSE 69; RESP 17; TEMP 36.6; O2SAT 96
== END 2023-05-01 13:05 | disposition skilled nursing facility (03) | DRG 690 ==
LOC: ER 12:18 → MEDSURG 12:36
PROVIDERS: Admitting Provider Internal Medicine; Emergency Provider Family Medicine; PCP Internal Medicine; Visit Provider Internal Medicine
DX: N39.0 Urinary tract infection, site not specified (principal); E87.20 Acidosis, unspecified; G93.40 Encephalopathy, unspecified; B96.89 Other specified bacterial agents as the cause of diseases classified elsewhere; Z87.440 Personal history of urinary (tract) infections; I48.91 Unspecified atrial fibrillation; Z79.01 Long term (current) use of anticoagulants; Z95.0 Presence of cardiac pacemaker; Z87.891 Personal history of nicotine dependence; N20.0 Calculus of kidney; N40.1 Benign prostatic hyperplasia with lower urinary tract symptoms; R33.8 Other retention of urine; Z86.73 Personal history of transient ischemic attack (TIA), and cerebral infarction without residual deficits; I25.10 Atherosclerotic heart disease of native coronary artery without angina pectoris; E03.9 Hypothyroidism, unspecified; E78.5 Hyperlipidemia, unspecified; N18.9 Chronic kidney disease, unspecified; I50.9 Heart failure, unspecified; G30.9 Alzheimer's disease, unspecified; F02.80 Dementia in other diseases classified elsewhere, unspecified severity, without behavioral disturbance, psychotic disturbance, mood disturbance, and anxiety; F32.A Depression, unspecified
CPT/HCPCS: 36415; 51702; 51798; 71045; 80048; 80053; 81001; 83605; 83735; 85025; 87040; 87077; 87086; 87186; 87426; 87493; 96365; 96372; 97116; 97161; 97165; 97530; 97535; 99285; J0696; J1644; J7030

== ENCOUNTER 2023-06-11 11:35 | Emergency (ER) | payer OTHER, SELFPAY ==
[2023-06-11 11:44] VITALS: BP 173/98; PULSE 80; RESP 17; TEMP 36.4; O2SAT 97; BMI 29.4
--- NOTE | 2023-06-11 12:11 | PC.PHAR ---
Addendum entered by Allison Clarke 06/11/23 12:50: PT WAS ADMITTED TO [facility] RECENTLY. CURRENTLY WAITING ON THEIR MED LIST. 06/11/23 12:50PM Addendum entered by Allison Clarke 06/11/23 12:20: FAXING FOR MED LIST 06/11/23 Original Note: [facility]
--- NOTE | 2023-06-11 12:12 | CT_ITS ---
WS: [id number] CT HEAD TECHNIQUE: Noncontrast CT of the head obtained from the skullbase to the vertex. CLINICAL INFORMATION: injury COMPARISON: 01/27/2023 DLP: 1082.[address] scans at [facility] use at least one of these dose optimization techniques: automated e xposure control; mA and/or kV adjustment per patient size (includes targeted exams where dose is matc hed to clinical indication); or iterative reconstruction. FINDINGS: No evidence of intracranial hemorrhage or mass effect. Ventricular system and basal cisterns are morales nt. Moderate small vessel changes with moderate parenchymal volume loss. No extra-axial fluid collect ions. No evidence of mass or mass effect. Chronic infarct with encephalomalacia RIGHT parasagittal oc cipital lobe. Intracranial vascular calcification. Paranasal sinuses and mastoid air cells are well aerated. .Normal visualized soft tissues. IMPRESSION: 1. No evidence of intracranial hemorrhage or mass effect. 2. No acute intracranial findings.
--- NOTE | 2023-06-11 12:17 | ED_ITS ---
HPI - Head Injury General: Chief complaint: Head Injury Stated complaint: [facility] Time Seen by Provider: 06/11/23 12:11 Source: patient Mode of arrival: ambulatory Limitations: no limitations History of Present Illness: 87-year-old male states he had fell 2 da ys ago and he did hit his head he seen his PCP today and then sent him here for head CT he is on Eliquis she denies any headache currently he has no other complaints at this time. Denies any other injuries of this fall Associated symptoms: Deny nausea, neck pain or vomiting Review of Systems Const: Denies: fever(s), chills, body aches or change in appetite Eyes: Denies: blurry vision or eye discomfort ENMT: Denies: throat pain or dental pain Card: Denies: chest pain Resp: Denies: dyspnea GI: Denies: abdominal pain, nausea, vomiting or diarrhea Musc: Denies: neck pain or back pain Skin/Breast: Denies: rash Neuro: Denies: headache(s) PFSH ED PFSH: Medical History Chronic kidney disease Hypothyroidism Depression Hyperlipidemia Urinary retention Alzheimer disease CAD (coronary artery disease) Atrial fibrillation CHF (congestive heart failure) CVA (cerebral vascular accident) BPH with obstruction/lower urinary tract symptoms Gross hematuria Surgical History History of permanent cardiac pacemaker placement History of back surgery S/P knee surgery Family History Father , 81 CAD (coronary artery disease) Mother Diabetes Social History Smoking and tobacco/nicotine status: former use of tobacco/nicotine Alcohol intake: never Substance/Drug Use: never Adopted: No Caregiver/support person: No Lives independently: No Household members: spouse Marital status: Current occupational status: retired Physical Exam Const: COMMON NORMALS: no acute distress, patient oriented x3 and healthy appearing HENMT: COMMON NORMALS: normocephalic and atraumatic HEAD & SCALP: nor mocephalic and atraumatic Eye: COMMON NORMALS: Equal, round and reactive pupils present and EOMs intact bilaterally PUPIL: Yes Equal, round and reactive pupils present Neck/C-Spine: COMMON NORMALS: full ROM and supple CERVICAL SPINE: No C ervical spine tenderness Chest: COMMONS NORMALS: normal inspection of the chest Resp: COMMON NORMALS: normal respiratory effort Cardio: COMMON NORMALS: regular rate, regular rhythm and No murmurs present (Cardio) RATE: regular rate RHYTHM: regular rhythm GI: COMMON NORMALS: Normal to inspection, nondistended, normoactive bowel s ounds present Extremity: COMMON NORMALS: normal to inspection and full ROM Neuro: COMMON NORMALS: patient oriented x3, moves all extremities and no focal motor deficits Psych: COMMON NORMALS: mental status grossly normal, Normal thought process present and cooperative THOUGHT PROCESS: Normal thought process present Skin: COMMON NORMALS: no rashes or lesions noted and no wounds GENERAL SKIN EXAM: no rashes or lesions noted Course Vital Signs: Vital signs: Vital Signs Temperature 97.6 F 06/11/23 11:44 Pulse Rate 70 06/11/23 12:33 Respiratory Rate 17 06/11/23 11:44 Blood Pressure 117/81 06/11/23 12:33 Pulse Oximetry 98 06/11/23 12:33 Oxygen Delivery Me thod Room Air 06/11/23 12:33 MDM - Head Injury Medcial Decision Making Patient presents with close head injury head CT is normal patient stable for discharge she is follow-up with PCP and return if worsening. Medical Records I reviewed the patient's medical records. All radiology interpretation(s) finalized by discharge Discharge Plan Discharge Patient Disposition: Home Clinical Impression: Closed head injury Condition: Stable Prescriptions: No Action cholecalciferol (vitamin D3) [Vitamin D3] 2,000 unit tablet 2,000 unit PO DAILY finasteride 5 mg tablet 5 mg PO DAILY clopidogrel [Plavix] 75 mg tablet 75 mg PO DAILY furosemide 20 mg tablet 20 mg PO DAILY galantamine 4 mg tablet 4 mg PO BID Qty: 60 3RF Rx Instructions: administer with AM and PM meals citalopram 40 mg Tablet 20 mg PO DAILY levothyroxine 75 mcg Tablet 75 mcg PO DAILY silodosin 4 mg capsule 4 mg PO BEDTIME apixaban 5 mg Tablet 5 mg PO BID atorvastatin 80 mg Tablet 40 mg PO QPM Discharge Orders: Discharge ED (Routine); Ordered 06/11/23 Ordered By: Mathew David Referrals: Chente Yanez DO [Primary Care Provider] - 1-3 days Discharge Diet: Advance as tolerated Discharge Activity: Resume usual activity Patient Instructions: Head Injury (ED) Coding Level of Care Code ED Fabrication Machine Operator for Any [place]
[2023-06-11 12:33] VITALS: BP 117/81; PULSE 70; O2SAT 98
[2023-06-11 13:20] VITALS: BP 117/81; PULSE 70; RESP 17; TEMP 36.4; O2SAT 98
== END 2023-06-11 13:32 | disposition home or self-care (01) ==
PROVIDERS: Emergency Provider Emergency Medicine; PCP Internal Medicine
DX: S09.8XXA Other specified injuries of head, initial encounter (principal); Z79.02 Long term (current) use of antithrombotics/antiplatelets; N18.9 Chronic kidney disease, unspecified; E78.5 Hyperlipidemia, unspecified; G30.9 Alzheimer's disease, unspecified; F02.80 Dementia in other diseases classified elsewhere, unspecified severity, without behavioral disturbance, psychotic disturbance, mood disturbance, and anxiety; I25.10 Atherosclerotic heart disease of native coronary artery without angina pectoris; I50.9 Heart failure, unspecified; Z86.73 Personal history of transient ischemic attack (TIA), and cerebral infarction without residual deficits; Z95.0 Presence of cardiac pacemaker; Z87.891 Personal history of nicotine dependence; W19.XXXA Unspecified fall, initial encounter
CPT/HCPCS: 70450; 99284